=== PATIENT | female | born 1970 | race Caucasian/White ===

== ENCOUNTER 2021-02-17 08:20 | Emergency (ER) | payer OTHER ==
[~2021-02-17] VITALS: Ht 160 cm; Wt 62.1 kg
[2021-02-17] MEDS ORDERED: KETO10TA2 PO (10:38)
[2021-02-17] MEDS ORDERED: FLONASE ALLERG9.9 ML NASAL (10:38)
[2021-02-17] MEDS ORDERED: MELATONIN5 M1 PO (10:38)
[2021-02-17] MEDS ORDERED: IVERMECTIN3 MG PO (10:38)
[2021-02-17] MEDS ORDERED: VITAMIN D31250 MCG PO (10:38)
[2021-02-17] MEDS ORDERED: VITAMIN C500 MG PO (10:38)
[2021-02-17] MEDS ORDERED: COLD & FLU REL180 ML (10:39)
== END 2021-02-17 10:53 | disposition home or self-care (01) ==
LOC: ER 08:20
DX: U07.1 COVID-19 (principal); B34.9 Viral infection, unspecified